=== PATIENT | female | born 1985 | race Caucasian/White ===

== ENCOUNTER 2016-11-20 16:36 | Emergency (ER) | payer BC, OTHER ==
[~2016-11-20] VITALS: Ht 177.8 cm; Wt 73.7 kg
[2016-11-20 16:40] VITALS: BP 159/82
[2016-11-20] MEDS ORDERED: DEXAMETHASONE 4 MG TABLET ONE (18:23)
[2016-11-20] MEDS ORDERED: DEXAMETHASONE 4 MG TABLET PO ONE (18:30)
== END 2016-11-20 19:03 | disposition home or self-care (01) ==
LOC: ED 18:57
DX: J03.90 Acute tonsillitis, unspecified (principal); Z88.6 Allergy status to analgesic agent; F12.10 Cannabis abuse, uncomplicated
CPT/HCPCS: 36415; 86308; 87081; 87880; 99284

== ENCOUNTER 2017-08-22 09:52 | Observation (INO) | payer BC, OTHER ==
[~2017-08-22] VITALS: Ht 177.8 cm; Wt 70.6 kg
[2017-08-22 10:29] LABS: MICROSCOPIC AUTO
[2017-08-22 10:31] LABS: CULTURE INDICATED? NO
[2017-08-22 10:40] LABS: AMPHETAMINE SCREEN, URINE Negative (Negative); BARBITURATE SCREEN, URINE Negative (Negative); BENZODIAZEPINE SCREEN, URINE Negative (Negative); CANNABINOID SCREEN, URINE Positive (Negative); COCAINE SCREEN, URINE Negative (Negative); METHADONE SCREEN, URINE Negative (Negative); OPIATE SCREEN, URINE Negative (Negative)
[2017-08-22 11:01] LABS: BASOPHILS # (AUTO) 0.03 x10^3/uL (0-0.1); BASOPHILS % (AUTO) 0 % (0-1); EOSINOPHILS # (AUTO) 0.16 x10^3/uL (0-0.4); EOSINOPHILS % (AUTO) 2 % (1-7); LYMPHOCYTES # (AUTO) 1.62 x10^3/uL (1-3.4); LYMPHOCYTES % (AUTO) 21 % (22-44); MD NO; MEAN CORPUSCULAR HEMOGLOBIN 26.7 pg (27.0-34.8); MEAN CORPUSCULAR HGB CONC 32.7 g/dL (32.4-35.8); MEAN CORPUSCULAR VOLUME 81.8 fL (80-100); MEAN PLATELET VOLUME 7.3 fL (7.4-10.4); MONOCYTES # (AUTO) 0.56 x10^3/uL (0.2-0.8); MONOCYTES % (AUTO) 7 % (2-9); NEUTROPHILS # (AUTO) 5.49 x10^3/uL (1.8-6.8); NEUTROPHILS % (AUTO) 70 % (42-75); PLATELET COUNT 261 x10^3/uL (130-400); RED BLOOD COUNT 4.28 x10^6/uL (3.82-5.3); RED CELL DISTRIBUTION WIDTH 14.4 % (9.6-15.2)
[2017-08-22 11:11] LABS: ACETAMINOPHEN 6 mcg/mL (10-30); ALBUMIN 3.9 g/dL (3.4-5.0); ANION GAP 8 mmol/L (5-15); CALCIUM 8.5 mg/dL (8.5-10.1); CHLORIDE 108 mmol/L (98-107); CREATININE 0.84 mg/dL (0.55-1.02)
[2017-08-22 11:13] LABS: SALICYLATE LEVEL < 1.7 mg/dL (2.8-20.0)
[2017-08-22] MEDS ORDERED: VILA40TA PO (11:14)
[2017-08-22] MEDS ORDERED: ACETAMINOPHEN 325 MG TABLET PO PRN (13:30)
[2017-08-22] MEDS ORDERED: DIPHENHYDRAMINE 25 MG CAPSULE PO PRN (13:30)
[2017-08-22] MEDS ORDERED: LORazepam 1MG TABLET PO PRN (13:30)
[2017-08-23] MEDS ORDERED: LORazepam 1MG TABLET ONE (02:44)
[2017-08-23] MEDS ORDERED: DIPHENHYDRAMINE 25 MG CAPSULE ONE (02:45)
[2017-08-23] MEDS ORDERED: TEMPLATE NON-FORMULARY MED. (Vilazodone Hydrochloride** (Viibryd**) 40 MG) PO SCH (09:00)
[2017-08-23] MEDS ORDERED: TEMPLATE NON-FORMULARY MED. (Vilazodone Hydrochloride** (Viibryd**) 40 MG) HOMEMEDPO SCH (13:53)
[2017-08-23 19:40] VITALS: BP 125/78
== END 2017-08-23 19:42 ==
LOC: ED 10:48 → EDIP 11:26 → 2N 08-23 12:21
PROVIDERS: ADMIT Internal Medicine; ATTEND Internal Medicine
DX: R45.851 Suicidal ideations (principal); F32.9 Major depressive disorder, single episode, unspecified; F12.90 Cannabis use, unspecified, uncomplicated; F41.1 Generalized anxiety disorder
CPT/HCPCS: 36415; 80048; 80307; 80329; 81001; 82040; 84702; 84703; 85025; 99285; G0378; Q0163; G0480